=== PATIENT | female | born 1970 | race African-American/Black ===

== ENCOUNTER 2016-11-07 06:20 | Day surgery (SDC) | payer OTHER ==
[2016-11-05 11:54] VITALS: BMI 39.8
[2016-11-07] MEDS ORDERED: PROPOFOL 20 ML ONE (07:45)
[2016-11-07] MEDS ORDERED: MIDAZOLAM HCL 2 MG/2 ML SINGLE DOSE VIAL ONE (07:45)
[2016-11-07] MEDS ORDERED: LIDOCAINE HCL/PF 2% SDV 5ML VIAL ONE (07:46)
[2016-11-07] MEDS ORDERED: KETOROLAC TROMETHAMINE 30 MG/1 ML VIAL ONE (08:36)
[2016-11-07] MEDS ORDERED: ONDANSETRON 4 MG/2 ML VIAL ONE ×2 (08:36→09:35)
[2016-11-07] MEDS ORDERED: DEXAMETHASONE SOD PHOSPHATE 4 MG/1 ML VIAL ONE (08:36)
[2016-11-07] MEDS ORDERED: ONDANSETRON 4 MG/2 ML VIAL IVPUSH PRN (09:07)
[2016-11-07] MEDS ORDERED: oxyCODONE HCL 5 MG TABLET PO PRN (09:07)
[2016-11-07] MEDS ORDERED: PROMETHAZINE HCL 25 MG/1 ML VIAL IVPUSH PRN (09:08)
[2016-11-07 11:40] VITALS: TEMP 98.4
[2016-11-07 11:51] VITALS: PULSE 90
[2016-11-07 12:08] VITALS: BP 130/80
--- NOTE | 2016-11-07 14:39 | OP ---
DATE OF OPERATION: ATTENDING PHYSICIAN: Jeff Rodriguez MD FELLOW: Kylie Jo RESIDENT: Dr. Diamond PREOPERATIVE DIAGNOSIS: Missed . POSTOPERATIVE DIAGNOSIS: Missed . PROCEDURE: Suction dilation and curettage. COMPLICATIONS: None. FLUIDS: 600. URINE OUTPUT: 50. DESCRIPTION OF PROCEDURE: The patient was taken to the operating room where general anesthesia was found to be adequate. She was placed in dorsal lithotomy position and prepped and draped in the normal sterile fashion. A pelvic exam revealed an approximately 8-week sized anteverted uterus. We then proceeded with inserting a straight catheter, which drained 50 mL of clear urine. A weighted speculum was placed into the patient's vagina. The anterior lip of the cervix was grasped with a single-tooth tenaculum. Cervix was then serially dilated to fit a 7-mm rigid curved suction curette. The suction curette was then passed approximately 2-3 times while reaching the green zone to remove products of conception. We then proceeded with a sharp curettage in order to ensure that the cavity was clear. There appeared to be throughout the entire cavity. We proceeded with using the suction curette with 1 final pass. This ended the procedure. The tenaculum was removed. There was excellent hemostasis at the site. All instruments, lap, and sponge count were correct x2, and the patient was taken to the recovery room in stable condition. JEFF RODRIGUEZ M.D. Kylie Jo dictating for MD GUZMAN Benton/[id number]
--- NOTE | 2016-11-08 16:05 | PATH ---
Surgical Pathology Report Patient Name: JOSSIE ADKINS [facility]. Rec. #: [id number] /Age/Gender: 1970 (Age: 45) / F Account: [id number] Location: [facility] AMBULATORY Taken: 11/07/2016 Received: 11/07/2016 Reported: 11/08/2016 Physicians: Jeff Rodriguez M.D. Specimen(s) Received PRODUCTS OF CONCEPTION Clinical History Missed post IVF cycle Had heartbeat but stopped Final Diagnosis PRODUCTS OF CONCEPTION, DILATATION AND CURETTAGE: CHORIONIC VILLI AND TROPHOBLASTIC TISSUE, CONSISTENT WITH PRODUCTS OF GESTATION. Electronically Signed Xiao Nguyen M.D. Gross Description Received in formalin labeled "products of conception," is a 9.0 x 8.0 x 1.2 cm aggregate of winn red soft tissue fragments. Villous tissue is identified. No definite somatic tissue is identified. A loan servicing representative portion is submitted in one cassette. /11/07/2016 saudi11/07/2016
== END 2016-11-07 11:15 | disposition home or self-care (01) ==
LOC: FASU 06:20
PROVIDERS: ATTEND Obstetrics & Gynecology Reproductive Endocrinology
PROC: 10D17ZZ Extraction of Products of Conception, Retained, Via Natural or Artificial Opening (ICD-10-PCS; principal; 2016-11-07 08:35)
DX: O02.1 Missed abortion (principal)
CPT/HCPCS: 84703; 88305-TC; 94760